=== PATIENT | male | born 1980 | race Hispanic/Latino ===

== ENCOUNTER 2019-01-08 16:29 | Outpatient (CLI) | payer OTHER ==
--- NOTE | 2019-01-08 16:57 | RAD ---
2 VIEWS RIGHT TIBIA AND FIBULA: HISTORY: Fall with pain. AP and lateral views right tibia and fibula obtained. FINDINGS: Images demonstrate an intra-articular distal right tibial fracture extending from the distal right ti bial metaphysis into the epiphyseal surface. Proximal distal fracture fragments are not significantly displaced. IMPRESSION: Intra-articular distal right tibial fracture. Transcribed Date/Time: 01/08/2019 5:02 PM
--- NOTE | 2019-01-08 16:59 | RAD ---
3 VIEWS RIGHT ANKLE: HISTORY: Fall. AP, lateral and oblique views right ankle obtained. FINDINGS: Images demonstrate an intra-articular fracture involving the distal right tibial metaphysis extending to the articulating surface. Proximal distal fracture fragments are not significantly displaced. Soft tissue swelling seen lateral to the right ankle. IMPRESSION: Intra-articular distal right tibial fracture. Transcribed Date/Time: 01/08/2019 5:01 PM
== END 2019-01-08 16:30 | disposition home or self-care (01) ==
LOC: BICRAD 16:29
DX: S89.91XD Unspecified injury of right lower leg, subsequent encounter (principal); S82.301D Unspecified fracture of lower end of right tibia, subsequent encounter for closed fracture with routine healing

== ENCOUNTER 2019-01-17 10:21 | Day surgery (SDC) | payer OTHER ==
[2019-01-16 10:07] VITALS: BMI 28.1
[2019-01-17] MEDS ORDERED: Fentanyl 100 MCG/2 ML VIAL ONE ×3 (10:41→13:03)
[2019-01-17] MEDS ORDERED: Midazolam HCl 2 mg/2 ml Vial ONE (11:04)
[2019-01-17] MEDS ORDERED: Bupivacaine PF 0.5% 30 ML VIAL ONE (12:00)
[2019-01-17] MEDS ORDERED: HYDROcodone/Acetaminophen 5/325 mg Tablet ONE (14:10)
--- NOTE | 2019-01-17 19:03 | RAD ---
EXAM: 2 views of the right ankle HISTORY: Right distal tibia fracture COMPARISON: 01/08/2019 FINDINGS: 2 views of the right ankle shows the patient is status post percutaneous screw fixation of the intra-articular distal tibia fracture. Normal alignment of the ankle mortise is seen. IMPRESSION: Status post fixation of distal tibia fracture
--- NOTE | 2019-01-17 23:09 | OP ---
DATE OF PROCEDURE: 01/17/2019 PREOPERATIVE DIAGNOSIS: Right intra-articular distal tibia fracture. POSTOPERATIVE DIAGNOSIS: Right intra-articular distal tibia fracture. SURGICAL PROCEDURE: Percutaneous screw stabilization of right articular surface fracture, distal tibia. ANESTHESIA: General. MATCHING MACHINE OPERATOR: Lionel Benavides PA-C TOURNIQUET TIME: Zero. IMPLANTS: Synthes 4.0 mm cortical screws x2. COMPLICATIONS: None. DRAINS: None. SPECIMEN: None. OUTCOME: Near-anatomic alignment of the articular surface distal tibia. INDICATIONS FOR PROCEDURE: The patient is a pleasant 38-year-old gentleman who fell from a height of approximately 5 feet, sustaining a nondisplaced, but intra-articular distal tibia fracture. This articular split is seen best on the coronal view of the ankle x-rays. Given the split of the articular surface, I have discussed with the patient that we may be safest to proceed with a percutaneous stabilization of the joint surface and then nonsurgical management for the metaphyseal extension. The patient appears comfortable with this plan and as such we are now going to the operating room for stabilization of the joint surface. DESCRIPTION OF PROCEDURE: The patient was brought to the operating room and a time-out performed followed by induction of general anesthesia. Next, under C-arm guidance, two small percutaneous skin incisions were made over the anterior ankle. Dissection was carried down bluntly to the bone. Next, a drill was passed from the anterior cortex of the distal tibia, crossed and just above the joint surface and into the posterior aspect of the distal tibia. Appropriate length screws were then applied, getting excellent compression and closure of the small gap as seen on the lateral projection. There was a smooth articular surface at the completion of this procedure. The two incision sites were then closed with georgina and then a Xeroform and a well-padded short-leg splint was applied to the leg. The patient was then transferred to recovery room in stable condition. There were no complications. He tolerated the procedure well. Job ID: [id number]
== END 2019-01-17 15:45 | disposition home or self-care (01) ==
LOC: SDC 10:21
PROVIDERS: ATTEND Orthopaedic Surgery
PROC: 0QHG34Z Insertion of Internal Fixation Device into Right Tibia, Percutaneous Approach (ICD-10-PCS; principal; 2019-01-17)
DX: S82.874A Nondisplaced pilon fracture of right tibia, initial encounter for closed fracture (principal); W17.89XA Other fall from one level to another, initial encounter; Y99.0 Civilian activity done for income or pay
CPT/HCPCS: 76000; C1713; J0690; J2250; J3010; S0020

== ENCOUNTER 2020-12-10 10:35 | Emergency (ER) | payer SELFPAY ==
[2020-12-10 12:42] LABS: #Basophils 0.1 thou/uL (0.0-0.2); #Eosinphils 0.2 thou/uL (0.0-0.7); #Lymphocytes 1.6 thou/uL (1.20-3.40); #Monocytes 0.7 thou/uL (0.11-0.59); #Neutrophils 5.2 thou/uL (1.40-6.50); %Basophils 0.7 % (0.0-1.0); %Eosinophils 2.3 % (0.0-10.0); %Lymphocytes 20.7 % (21.0-51.0); %Monocytes 9.4 % (0.0-10.0); %Neutrophils 66.9 % (42.0-75.0); Mean Corpuscular HGB CONC 32.5 g/dL (32.0-36.0); Mean Corpuscular Hemoglobin 30.6 pg (27.0-31.0); Mean Corpuscular Volume 94.2 fL (78.0-98.0); Mean Platelet Volume 7.5 fL (7.4-10.4); Platelet Count 230 thou/uL (130-400); RBC Distribution Width 11.5 % (11.5-14.5); Red Blood Cell (RBC) Count 4.89 mill/uL (4.70-6.10); White Blood Cell (WBC) Count 7.8 thou/uL (4.8-10.8)
[2020-12-10 13:09] LABS: Bacteria/HPF None Seen HPF (None Seen); Bilirubin Negative (Negative); Blood, Urine Trace (Negative); Clarity Clear (Clear); Glucose, Urine (Dipstick) Normal (Negative); Ketone, Urine Negative (Negative); Leukocyte Negative Leu/uL (Negative); Nitrite Negative (Negative); Protein, Urine (Dipstick) Negative (Neg-Trace); RBC/HPF 0-3 HPF (0-3); Specific Gravity, Urine 1.005 (1.002-1.036); Squamous Epithelial None Seen HPF (0-3); Urobilinogen Normal mg/dL (Less than 2); WBC/HPF 0-3 HPF (0-3); pH, Urine 5.5 (5.0-9.0)
[2020-12-10 13:17] LABS: ALT (SGPT) 42 U/L (8-55); AST (SGOT) 32 U/L (5-34); Albumin 4.2 g/dL (3.5-5.0); Alkaline Phosphatase 70 U/L (40-110); Anion Gap 10 mmol/L (10-20); BUN (Urea Nitrogen) 10 mg/dL (8.9-20.6); Bilirubin, Total 0.4 mg/dL (0.2-1.2); Calc. Creatinine Clearance 0 mL/min (70-130); Calcium 9.3 mg/dL (7.8-10.44); Carbon Dioxide 26 mmol/L (22-29); Chloride 106 mmol/L (98-107); Glucose 103 mg/dL (70-105); Protein, Total 7.2 g/dL (6.0-8.3); Sodium 138 mmol/L (136-145)
== END 2020-12-10 16:37 | disposition left against medical advice (07) ==
LOC: ERS 10:35
DX: Z53.21 Procedure and treatment not carried out due to patient leaving prior to being seen by health care provider (principal)
CPT/HCPCS: 36415; 80053; 81003; 81015; 83690; 85025; 86140; 87086